=== PATIENT | female | born 1990 | race Caucasian/White ===

== ENCOUNTER 2016-07-23 06:10 | Inpatient (IN) | payer OTHER ==
[2016-07-23] MEDS ORDERED: CITRIC ACID/SODIUM CITRATE 30 ML UNIT-DOSE CUP PO ONE (06:15)
[2016-07-23] MEDS ORDERED: ELECTROLYTE-148 SOLN 500 ML IV ONE (06:15)
[2016-07-23] MEDS ORDERED: ELECTROLYTE-148 SOLN 1,000 ML IV SCH (06:45)
--- NOTE | 2016-07-23 07:35 | HP ---
Past Medical History - Primary Care Physician PCP:: Tarik Lincoln - Admission Chief Complaint: 39 weeks, previous c/s , gestational DM , for repeat c/s History of Present Illness: 25 yo f edc by sono 07/30/16 with 2 previous c/s requesting repeat c/s rba discussed ,fhr cat 1, cx clp,vx -3 mi History Source: Patient Limitations to Obtaining History: No Limitations - Past Medical History ...: 6 ...Para: 2 ...Term: 2 ...: 0 ...Spon : 0 ...Induced : 0 ...Multiple Gestation: 0 ...LMP: 10/24/15 ... Weeks Gestation by Dates: 39 ...EDC by Dates: 07/30/16 ...EDC by Sono: 07/30/16 Heme/Onc: Yes: Anemia Infectious Disease: Yes: STD's (txed in past for chlamydia) Endocrine: Yes: Diabetes Mellitus (diet controlled) - Past Surgical History Past Surgical History: Yes: Hx Myomectomy: No Hx Transabdominal Cerclage: No - Smoking History Smoking history: Never smoked - Alcohol/Substance Use Hx Alcohol Use: No - Social History History of Recent Travel: No Home Medications - Allergies Allergies/Adverse Reactions: Allergies Allergy/AdvReac Type Severity Reaction Status Date / Time No Known Allergies Allergy Verified 07/23/16 06:47 - Home Medications Home Medications: Ambulatory Orders Vitamins (Sjr) - 1 tab PO DAILY 06/03/16 Review of Systems - Review of Systems Constitutional: reports: No Symptoms Eyes: reports: No Symptoms HENT: reports: No Symptoms Neck: reports: No Symptoms Cardiovascular: reports: No Symptoms Respiratory: reports: No Symptoms Gastrointestinal: reports: No Symptoms Genitourinary: reports: No Symptoms Musculoskeletal: reports: No Symptoms Integumentary: reports: No Symptoms Neurological: reports: No Symptoms Endocrine: reports: No Symptoms Hematology/Lymphatic: reports: No Symptoms Psychiatric: reports: No Symptoms Physical Exam - Maternity Constitutional: Yes: Well Nourished, No Distress, Calm Eyes: Yes: WNL, Conjunctiva Clear, EOM Intact HENT: Yes: WNL, Atraumatic, Normocephalic Neck: Yes: WNL, Supple, Trachea Midline Cardiovascular: Yes: WNL, Regular Rate and Rhythm Breast(s): Yes: WNL - Abdominal Exam/OB Fundal Height: 40 Number of Fetuses: Single Presentation: Vertex Contractions: No Intensity: Unaware Monitor Mode: External Heart Rate Location: [facility] Category: I Accelerations: Uniform Decelerations: None - Vaginal Exam/OB Vaginal Bleediing: No Speculum Exam: No Dilatation (cm): closed Effacement (%): 0 Amniotic Membrane Status: Intact Presentation: Vertex/Position Station: -3 - Physical Exam Extremities: Yes: WNL Edema: Yes Edema: LLE: Trace, RLE: Trace Deep Tendon Reflex Grade: Normal +2 Psychiatric: Yes: WNL Hemorrhage Risk Assessment - Risk Factors Medium Risk Factors: Yes: Prior , uterine surgery,or multiple laparotomies Risk Score: 1 Risk Level: Medium Risk Problem List - Problems (1) with 39 completed weeks gestation Code(s): Z3A.39 - 39 WEEKS GESTATION OF (2) Previous section complicating Code(s): O34.219 - MATERNAL CARE FOR UNSP TYPE SCAR FROM PREVIOUS DEL Assessment/Plan repeat c/s, risks of infection, bleeding, injury to surrounding tissue, bowel, bladder, vesseles , anesthesia risk, post op complication discussed , declined BTL.
[2016-07-23 07:53] VITALS: BMI 31.1
[2016-07-23] MEDS ORDERED: oxyCODONE HCL 5 MG TABLET PO PRN (08:35)
[2016-07-23] MEDS ORDERED: IBUPROFEN 800 MG/8 ML IJ IVPB PRN (08:35)
[2016-07-23] MEDS ORDERED: BENZOCAINE 28 GM HEMORRHOIDAL OINTMENT PR PRN (08:35)
[2016-07-23] MEDS ORDERED: BENZOCAINE 20% 57 GM BOTTLE TP PRN (08:35)
[2016-07-23] MEDS ORDERED: METHYLERGONOVINE MALEATE 0.2 MG/1 ML AMP IM PRN (08:35)
[2016-07-23] MEDS ORDERED: diphenhydrAMINE HCL 25 MG CAPSULE (FP) PO PRN (08:35)
[2016-07-23] MEDS ORDERED: WITCH HAZEL 50% (TUCKS) 40 PAD/JAR PAD TP PRN (08:35)
[2016-07-23] MEDS ORDERED: OXYTOCIN 20 UNITS in 0.9% NS 1,000 ML IV SCH (08:45)
[2016-07-23] MEDS ORDERED: morphine SULFATE/Preservative Free 0.5 MG/ML (1cc Syringe) SPIN ONE (08:50)
[2016-07-23] MEDS ORDERED: ONDANSETRON 4 MG/2 ML VIAL IVPB PRN (08:50)
[2016-07-23] MEDS ORDERED: CEFAZOLIN (PRE-DOCKED) 50 ML IVPB ONE ×2 (15:19→23:08)
[2016-07-23] MEDS: CEFAZOLIN 1 GM/D5W 50 ML IVPB SCH (15:33)
[2016-07-24] MEDS: CEFAZOLIN 1 GM/D5W 50 ML IVPB SCH (00:03)
[2016-07-24] MEDS: IBUPROFEN 600 MG TABLET (FP) PO PRN (06:03)
[2016-07-24] MEDS: ACETAMINOPHEN 325 MG TABLET (FP) PO PRN ×3 (06:03→18:19)
[2016-07-24 07:07] LABS: BASOPHIL 0.2 % (0-2.0); EOSINOPHIL 0.1 % (0-4.5); MCH 21.5 pg (25.7-33.7); MCHC 31.1 g/dl (32.0-36.0); MEAN CELL VOLUME 69.2 fl (80-96); MEAN PLT VOLUME 8.7 fl (7.5-11.1); NEUTROPHILS 83.1 % (42.8-82.8); PLATELET COUNT 162 K/MM3 (134-434); RDW 18.1 % (11.6-15.6)
--- NOTE | 2016-07-24 08:05 | OP ---
DATE OF OPERATION: 07/23/2016 PREOPERATIVE DIAGNOSES: 39 weeks, gestational diabetes, 2 previous sections, request of repeat section. POSTOPERATIVE DIAGNOSES: 39 weeks, gestational diabetes, 2 previous sections, request of repeat section. PROCEDURE: Repeat low segment transverse section. SURGEON: Tarik Lincoln MD MASTICATOR: NICO Patton ANESTHESIA: Spinal, Dr. Jules. ESTIMATED BLOOD LOSS: 500 mL. DESCRIPTION OF PROCEDURE: The patient was taken to the operating room under adequate epidural anesthesia. Abdomen and perineum was prepped and draped. Pfannenstiel abdominal skin incision was made over the previous incision. Abdominal wall was cut layer by layer until the peritoneum was exposed and incised. Upon entering the abdominal cavity, lower uterine segment was identified, and uterovesical fold of peritoneum established. Bladder was pushed down. The lower uterine segment was very thin and had a window. Then amniotic sac was entered. Clear fluid. Head delivered from right occiput transverse position. Nasopharynx was suctioned, and live baby delivered without any difficulty. Placenta was delivered manually. Uterine cavity was cleaned of all remaining tissue. Uterine incision was closed in 2 layers, the 1st layer with 0 Biosyn continuous suture, the 2nd layer with 0 Biosyn imbricating the 1st layer. Bladder flap was closed with 0 Biosyn continuous suture. Both tubes and ovaries were checked and were normal. No active bleeding was seen. All of the lap pad, sponge, and instrument counts were correct. Then peritoneum was closed with 0 Biosyn continuous suture. Muscles were brought together with interrupted sutures of 0 Biosyn. Fascia was closed with 0 Biosyn continuous suture. Subcutaneous fat interrupted suture of 0 Biosyn and the skin was closed with charlotte. The patient tolerated the procedure well and left the OR in good condition. Maryam [id number]
[2016-07-24] MEDS ORDERED: BISACODYL 10 MG SUPP.RECT RC PRN (08:35)
[2016-07-24] MEDS: ENOXAPARIN NA (PORCINE) 40 MG/0.4 ML DISP.SYRIN SQ SCH (09:03)
[2016-07-24] MEDS: PRENATAL VITAMINS W/ FOLIC ACID TABLET (FP) PO SCH (09:03)
--- NOTE | 2016-07-24 09:11 | PN ---
Post Progress Note - Subjective Subjective: 25 yo Para 3, status post repeat , seen and evaluated. Doing well. Type of Delivery: Repeat C/S Vital Signs: Vital Signs Temperature 97.8 F 07/24/16 08:28 Pulse Rate 62 07/24/16 08:28 Respiratory Rate 20 07/24/16 08:28 Blood Pressure 110/57 07/24/16 08:28 O2 Sat by Pulse Oximetry (%) 99 07/23/16 10:00 Breast Exam: Yes: Soft Uterus: Yes: Fundus Firm Incision: Yes: Dressing dry and intact Abdomen/GI: Yes: Abdomen soft, Tolerating PO Lochia: Yes: Rubra Lochia, amount: Small Extremities: Yes: Calves non-tender Activity: Ambulating - Labs Labs: CBC WBC 10.0 K/mm3 (4.0-10.0) 07/24/16 06:00 RBC 4.27 M/mm3 (3.60-5.2) 07/24/16 06:00 Hgb 9.2 GM/dL (10.7-15.3) L 07/24/16 06:00 Hct 29.6 % (32.4-45.2) L 07/24/16 06:00 MCV 69.2 fl (80-96) L 07/24/16 06:00 MCHC 31.1 g/dl (32.0-36.0) L 07/24/16 06:00 RDW 18.1 % (11.6-15.6) H 07/24/16 06:00 Plt Count 162 K/MM3 (134-434) 07/24/16 06:00 MPV 8.7 fl (7.5-11.1) 07/24/16 06:00 Neutrophils % 83.1 % (42.8-82.8) H 07/24/16 06:00 Lymphocytes % 12.2 % (8-40) D 07/24/16 06:00 Monocytes % 4.4 % (3.8-10.2) 07/24/16 06:00 Eosinophils % 0.1 % (0-4.5) D 07/24/16 06:00 Basophils % 0.2 % (0-2.0) 07/24/16 06:00 Problem List - Problems (1) Status post repeat low transverse section Code(s): Z98.891 - HISTORY OF UTERINE SCAR FROM PREVIOUS SURGERY Assessment/Plan Status post repeat Stable Continue routine post op care
--- NOTE | 2016-07-24 10:05 | PN ---
Progress Note, Physician Chief Complaint: Pt ambulating, not yet voided, no SOLORZANO, pain controlled. No anesthesia complaints. - Current Medication List Current Medications: Active Medications Acetaminophen (Tylenol -) 650 mg PO Q4H PRN PRN Reason: FEVER OR PAIN Last Admin: 07/24/16 06:03 Dose: 650 mg Benzocaine (Americaine Ointment -) 1 applic NH PRN PRN PRN Reason: PAIN Benzocaine (Americaine 20% Huntley -) 1 spray TP PRN PRN PRN Reason: PAIN Bisacodyl (Dulcolax Suppository -) 10 mg RC PRN PRN PRN Reason: CONSTIPATION Diphenhydramine HCl (Benadryl -) 25 mg PO Q8H PRN PRN Reason: FOR ITCHING Diphenhydramine HCl (Benadryl Injection -) 25 mg IVPUSH Q4H PRN PRN Reason: Pruritis Enoxaparin Sodium (Lovenox -) 40 mg SQ DAILY [facility] Last Admin: 07/24/16 09:03 Dose: 40 mg Oxytocin/Sodium Chloride (Normal Saline+20 Units Oxytocin -) 1,000 mls @ 125 mls/hr IV ASDIR [facility] Last Admin: 07/23/16 14:56 Dose: 125 mls/hr Ibuprofen (Motrin -) 600 mg PO Q4H PRN PRN Reason: PAIN Last Admin: 07/24/16 06:03 Dose: 600 mg Methylergonovine Maleate (Methergine Injection -) 0.2 mg IM Q4H PRN PRN Reason: EXCESSIVE BLEEDING Last Admin: 07/23/16 20:32 Dose: 0.2 mg Oxycodone HCl (Roxicodone -) 5 mg PO Q4H PRN PRN Reason: PAIN LEVEL 1-5 Oxycodone HCl (Roxicodone -) 10 mg PO Q4H PRN PRN Reason: PAIN LEVEL 6-10 Multivit/Folic Acid/Iron ( Vitamins (Sjr) -) 1 tab PO DAILY [facility] Last Admin: 07/24/16 09:03 Dose: Not Given Senna/Docusate Sodium (Pericolace -) 1 tablet PO HS PRN PRN Reason: CONSTIPATION Simethicone (Mylicon -) 80 mg PO Q4H PRN PRN Reason: GAS Witch Cynthia/Glycerin (Tucks Pads -) 1 pad TP PRN PRN PRN Reason: PAIN - Objective Vital Signs: Vital Signs Temperature 97.8 F 07/24/16 08:28 Pulse Rate 62 07/24/16 08:28 Respiratory Rate 20 07/24/16 08:28 Blood Pressure 110/57 07/24/16 08:28 O2 Sat by Pulse Oximetry (%) 99 07/23/16 10:00 Constitutional: Yes: Well Nourished, No Distress, Calm Musculoskeletal: Yes: WNL Neurological: Yes: WNL, Alert, Oriented ...Motor Strength: WNL Labs: CBC, BMP 07/24/16 06:00 Assessment/Plan POD#1 s/p repeat under spinal with duramorph. D/C from anesthesia care.
[2016-07-24 12:13] LABS: ANISOCYTOSIS 2+; HYPOCHROMIA 1+; MICROCYTOSIS 1+
[2016-07-24] MEDS: SIMETHICONE 80 MG TAB.CHEW (FP) PO PRN ×2 (14:45→18:19)
[2016-07-24] MEDS: oxyCODONE HCL 5 MG TABLET PO PRN ×2 (14:46→18:21)
[2016-07-25] MEDS: SIMETHICONE 80 MG TAB.CHEW (FP) PO PRN ×3 (03:07→18:34)
[2016-07-25] MEDS: ACETAMINOPHEN 325 MG TABLET (FP) PO PRN ×3 (03:08→18:34)
[2016-07-25] MEDS: oxyCODONE HCL 5 MG TABLET PO PRN ×3 (03:08→18:35)
[2016-07-25] MEDS: ENOXAPARIN NA (PORCINE) 40 MG/0.4 ML DISP.SYRIN SQ SCH (09:57)
[2016-07-25] MEDS: PRENATAL VITAMINS W/ FOLIC ACID TABLET (FP) PO SCH (09:57)
--- NOTE | 2016-07-25 13:39 | PN ---
Post Progress Note - Subjective Subjective: 25 yo Para 3 status post repeat , seen and evaluated. She's out of bed to chair. She's bottle feeding. Post Day: 2 Type of Delivery: Repeat C/S Vital Signs: Vital Signs Temperature 98.4 F 07/24/16 20:58 Pulse Rate 61 07/24/16 20:58 Respiratory Rate 18 07/24/16 20:58 Blood Pressure 111/52 07/24/16 20:58 O2 Sat by Pulse Oximetry (%) 99 07/23/16 10:00 Breast Exam: Yes: Soft Uterus: Yes: Fundus Firm Incision: Yes: Dressing dry and intact Abdomen/GI: Yes: Abdomen soft, Tolerating PO Lochia: Yes: Rubra Lochia, amount: Small Extremities: Yes: Calves non-tender Perineum: Yes: Intact Activity: Ambulating - Labs Labs: CBC WBC 10.0 K/mm3 (4.0-10.0) 07/24/16 06:00 RBC 4.27 M/mm3 (3.60-5.2) 07/24/16 06:00 Hgb 9.2 GM/dL (10.7-15.3) L 07/24/16 06:00 Hct 29.6 % (32.4-45.2) L 07/24/16 06:00 MCV 69.2 fl (80-96) L 07/24/16 06:00 MCHC 31.1 g/dl (32.0-36.0) L 07/24/16 06:00 RDW 18.1 % (11.6-15.6) H 07/24/16 06:00 Plt Count 162 K/MM3 (134-434) 07/24/16 06:00 MPV 8.7 fl (7.5-11.1) 07/24/16 06:00 Neutrophils % 83.1 % (42.8-82.8) H 07/24/16 06:00 Lymphocytes % 12.2 % (8-40) D 07/24/16 06:00 Monocytes % 4.4 % (3.8-10.2) 07/24/16 06:00 Eosinophils % 0.1 % (0-4.5) D 07/24/16 06:00 Basophils % 0.2 % (0-2.0) 07/24/16 06:00 Hypochromic-Microcytic 1+ 07/24/16 06:00 Anisocytosis 2+ 07/24/16 06:00 Microcytosis 1+ 07/24/16 06:00 Macrocytosis 1+ 07/24/16 06:00 Problem List - Problems (1) Status post repeat low transverse section Code(s): Z98.891 - HISTORY OF UTERINE SCAR FROM PREVIOUS SURGERY Assessment/Plan Status post repeat Stable Continue routine post op care D/C home in am
--- NOTE | 2016-07-25 13:41 | DS ---
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 Vital Signs: Vital Signs Temperature 98.4 F 07/24/16 20:58 Pulse Rate 61 07/24/16 20:58 Respiratory Rate 18 07/24/16 20:58 Blood Pressure 111/52 07/24/16 20:58 O2 Sat by Pulse Oximetry (%) 99 07/23/16 10:00 Constitutional: Yes: Well Nourished Eyes: Yes: Conjunctiva Clear HENT: Yes: Atraumatic Neck: Yes: Supple, Trachea Midline Cardiovascular: Yes: Regular Rate and Rhythm Respiratory: Yes: Regular, CTA Bilaterally Gastrointestinal: Yes: Normal Bowel Sounds Pelvis: Yes: WNL External Genitalia: Yes: Normal Vaginal Exam: Yes: Normal Cervix: Yes: Normal Uterus: Yes: Normal Breast(s): Yes: WNL Musculoskeletal: Yes: WNL Extremities: Yes: WNL Edema: No Wound/Incision: Yes: Clean/Dry, Well Approximated Neurological: Yes: Alert, Oriented ...Motor Strength: WNL Psychiatric: Yes: Alert, Oriented Labs: CBC, BMP 07/24/16 06:00 Delivery - Delivery Type of Anesthesia: Spinal Episiotomy/Laceration: None EBL (cc): 800 Delivery, Single - Stages of Labor Date of Delivery: 07/23/16 Time of Delivery: 08:06 Time Placenta Delivered: 08:07 - Condition of Infant 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 Present: Yes Name: Jessica Clarke Infant Gender: Female Weight: 7 lb 3 oz Position: Right, OT Total Hours ROM (Hrs/Mins): 0/2 - 1 Minute Total Score: 9 5 Minutes Total Score: 9 - Center Feeding Plan Initial Plan: Elected not to breastfeed exclusively throughout hospitalization Discharge Summary Reason For Visit: ADMIT-C/SECTION Current Active Problems with 39 completed weeks gestation (Acute) Previous section complicating (Acute) Status post repeat low transverse section (Acute) Procedures: Principal: Repeat Low Transverse Hospital Course: Routine Post op care Condition: Good - Instructions Diet, Activity, Other Instructions: Regular diet No driving, no lifting x 4 weeks F/U in clinic in one week - Home Medications Comprehensive Discharge Medication List: Ambulatory Orders Vitamins (Sjr) - 1 tab PO DAILY 06/03/16 Ferrous Sulfate 325 mg PO DAILY 07/23/16
[2016-07-25] MEDS ORDERED: SENNOSIDES/DOCUSATE COMBO (SENNA PLUS) TABLET (UD) PO PRN (22:00)
[2016-07-26 07:50] LABS: BASOPHIL 0.2 % (0-2.0); MCH 21.7 pg (25.7-33.7); MCHC 31.3 g/dl (32.0-36.0); MEAN CELL VOLUME 69.2 fl (80-96); MEAN PLT VOLUME 8.4 fl (7.5-11.1); NEUTROPHILS 71.9 % (42.8-82.8); PLATELET COUNT 163 K/MM3 (134-434); RDW 19.3 % (11.6-15.6); WHITE BLOOD COUNT 9.2 K/mm3 (4.0-10.0)
[2016-07-26] MEDS: IBUPROFEN 600 MG TABLET (FP) PO PRN (07:59)
[2016-07-26] MEDS: ACETAMINOPHEN 325 MG TABLET (FP) PO PRN (08:00)
[2016-07-26 09:57] VITALS: BP 114/60; PULSE 67; TEMP 98.2
[2016-07-26] MEDS: PRENATAL VITAMINS W/ FOLIC ACID TABLET (FP) PO SCH (10:00)
[2016-07-26] MEDS: ENOXAPARIN NA (PORCINE) 40 MG/0.4 ML DISP.SYRIN SQ SCH (10:45)
--- NOTE | 2016-07-28 14:02 | PATH ---
Surgical Pathology Report Patient Name: CAR SINCLAIR Med. Rec. #: [id number] /Age/Gender: 1990 (Age: 25) / F Account: [id number] Location: 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 Specimen(s) Received PLACENTA Clinical History , 39 weeks; gestational diabetes-diet controlled; c/s x2 Repeat c/section Final Diagnosis PLACENTA, DELIVERY: FOCALLY DISRUPTED THIRD TRIMESTER PLACENTA WITH MODERATE INCREASE IN PREVILLOUS, PERIVILLOUS, AND PRECHORIONIC FIBRIN DEPOSITION, FOCAL CALCIFICATIONS, THREE VESSEL UMBILICAL CORD, AND PLACENTAL MEMBRANES WITH AMNION HYPERPLASIA. Electronically Signed Malachi Adamson M.D. Gross Description The specimen is received fresh, labeled "placenta" and is a 642 gram, 17.5 x 16.5 x 3.2 cm placenta with attached membranes and umbilical cord. The attached membranes are pinto, translucent with focal opacities and insert marginally. The umbilical cord measures 32 cm in length and averages 1.1 cm in diameter. The cord inserts eccentrically, 4 cm to the nearest margin. No true knots or strictures are identified. Cut surface of the umbilical cord reveals 3 vessels. The surface is hernandez-blue with fibrin deposition and appropriate caliber vessels. The maternal surface is red-brown with focal defects. Sectioning reveals red-brown, spongy parenchyma. No focal lesions are identified. Leasing Consultant sections are submitted in three cassettes as follows: 1- membrane rolls and umbilical cord; 2-3- full thickness sections of placenta. /07/27/201607/27/2016
== END 2016-07-26 14:00 | disposition home or self-care (01) | DRG 540 ==
LOC: JERBED 06:10 → JLDR 06:25 → J3W 10:23
PROVIDERS: ADMIT Obstetrics & Gynecology; ATTEND Obstetrics & Gynecology
PROC: 10D00Z1 Extraction of Products of Conception, Low, Open Approach (ICD-10-PCS; principal; 2016-07-23)
DX: O34.211 Maternal care for low transverse scar from previous cesarean delivery (principal); O24.420 Gestational diabetes mellitus in childbirth, diet controlled; Z3A.39 39 weeks gestation of pregnancy; Z37.0 Single live birth
CPT/HCPCS: 36415; 85025; 88307-TC

== ENCOUNTER 2017-06-24 10:56 | Emergency (ER) | payer OTHER ==
[2017-06-24 10:59] VITALS: TEMP 97.9
[2017-06-24 11:04] VITALS: BMI 26.5
--- NOTE | 2017-06-24 11:06 | PDOC ---
History of Present Illness - General History Source: Patient Exam Limitations: No Limitations - History of Present Illness Initial Comments: 06/24/17 12:34 The patient is a 26 year old female who is approximately 15 weeks with a significant PMH of gestational diabetes who presents to the emergency department s/p witnessed syncopal episode this morning. The patient reports standing at a store when she lost consciousness and fell before regaining consciousness on the ground a short time after. The patient notes she did not eat breakfast this morning. As per old records, the patient had a similar syncopal episode during a previous in 2016 where she did not eat breakfast that time. The patient denies chest pain, shortness of breath, headache, and dizziness. Denies fever, chills, nausea, vomit, diarrhea and constipation. Denies dysuria, frequency, urgency and hematuria. Allergies: NKA Past surgical history: C section x3. Social history: No reported cigarette, alcohol, or drug use. 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 <Sahil Buchanan - Last Filed: 06/24/17 12:42> <Tisha Mackey - Last Filed: 06/25/17 10:34> - General Chief Complaint: Syncope/Near Syncope Stated Complaint: SYNCOPE Time Seen by Provider: 06/24/17 10:57 Past History <Sahil Buchanan - Last Filed: 06/24/17 12:42> - Past Medical History Anemia: No Asthma: No Cancer: No Cardiac Disorders: No CVA: No COPD: No CHF: No Dementia: No Diabetes: Yes (Gestational diabetic - diet control) GI Disorders: No Disorders: No HTN: No Hypercholesterolemia: No Liver Disease: No Seizures: No Thyroid Disease: No - Reproductive History (#): 4 Para: 2 Cervical CA: No Dysfunctional Uterine Bleeding: No Ectopic : No Endometrial CA: No Polycystic Ovaries: No Therapeutic (s) & number: Yes Tubal Ligation: No Spontaneous : 0 - Immunization History Immunization Up to Date: No - Suicide/Smoking/Psychosocial Hx Smoking History: Never smoked Have you smoked in the past 12 months: No Information on smoking cessation initiated: No Hx Alcohol Use: No Drug/Substance Use Hx: No Substance Use Type: None Hx Substance Use Treatment: No <iTsha Mackey - Last Filed: 06/25/17 10:34> - Past Medical History Allergies/Adverse Reactions: Allergies Allergy/AdvReac Type Severity Reaction Status Date / Time No Known Allergies Allergy Verified 06/24/17 10:58 Home Medications: Ambulatory Orders Vitamins (Sjr) - 1 tab PO DAILY 06/03/16 Review of Systems - Review of Systems Able to Perform ROS?: Yes Comments:: 06/24/17 12:34 GENERAL/CONSTITUTIONAL: No fever or chills. HEAD, EYES, EARS, NOSE AND THROAT: No change in vision. No ear pain or discharge. No sore throat. CARDIOVASCULAR: No chest pain or shortness of breath. RESPIRATORY: No cough, wheezing, or hemoptysis. GASTROINTESTINAL: No nausea, vomiting, diarrhea or constipation. GENITOURINARY: No dysuria, frequency, or change in urination. MUSCULOSKELETAL: No joint or muscle swelling or pain. No neck or back pain. SKIN: No rash NEUROLOGIC: (+) Syncope. No headache, vertigo, loss of consciousness, or change in strength/sensation. ENDOCRINE: No increased thirst. No abnormal weight change. HEMATOLOGIC/LYMPHATIC: No anemia, easy bleeding, or history of blood clots. ALLERGIC/IMMUNOLOGIC: No hives or skin allergy. <Sahil Buchanan - Last Filed: 06/24/17 12:42> *Physical Exam - Vital Signs Last Vital Signs Temp Pulse Resp BP Pulse Ox 97.9 F 80 16 107/57 100 06/24/17 10:59 06/24/17 11:40 06/24/17 11:40 06/24/17 11:40 06/24/17 11:40 <Sahil Buchanan - Last Filed: 06/24/17 12:42> - Vital Signs Last Vital Signs Temp Pulse Resp BP Pulse Ox 97.9 F 60 16 96/46 100 06/24/17 10:59 06/24/17 10:59 06/24/17 10:59 06/24/17 10:59 06/24/17 10:59 - Physical Exam Comments: GENERAL: Awake, alert, and fully oriented, in no acute distress HEAD: No signs of trauma EYES: PERRLA, EOMI, sclera anicteric, conjunctiva clear ENT: Auricles normal inspection, hearing grossly normal, nares patent, oropharynx clear without exudates. Dry mucosa with mild pallor of the lips. NECK: Normal ROM, supple, no lymphadenopathy, JVD, or masses LUNGS: Breath sounds equal, clear to auscultation bilaterally. No wheezes, and no crackles HEART: Regular rate and rhythm, normal S1 and S2, no murmurs, rubs or gallops ABDOMEN: Soft, nontender, normoactive bowel sounds. No guarding, no rebound. No masses EXTREMITIES: Normal range of motion, no edema. No clubbing or cyanosis. No cords, erythema, or tenderness NEUROLOGICAL: Cranial nerves II through XII grossly intact. Normal speech. Motor and sensation intact. Gait not tested due to nature of complaint. SKIN: Warm, Dry, normal turgor, no rashes or lesions noted. <Tisha Mackey - Last Filed: 06/25/17 10:34> Heart Score/ECG Review - ECG Impressions Comment:: EKG read 11:06- sinus nancy 58 bpm, no acute ST/T changes <Tisha Mackey - Last Filed: 06/25/17 10:34> ED Treatment Course - LABORATORY CBC & Chemistry Diagram: 06/24/17 11:07 06/24/17 11:07 - ADDITIONAL ORDERS Additional order review: Laboratory Results 06/24/17 06/24/17 11:07 10:59 Sodium 140 Potassium 3.8 Chloride 107 Carbon Dioxide 24 Anion Gap 9 BUN 10 Creatinine 0.6 Creat Clearance w eGFR > 60 POC Glucometer 99.09707 Random Glucose 89 Calcium 7.6 L Total Bilirubin 0.2 AST 14 L ALT 12 Alkaline Phosphatase 71 Creatine Kinase 42 Troponin I < 0.02 Total Protein 6.2 L Albumin 2.8 L Beta HCG, Quant 86143.3 06/24/17 06/24/17 11:07 10:59 RBC 4.33 MCV 73.1 L MCHC 32.5 RDW 17.9 H MPV 7.7 Neutrophils % 78.2 Lymphocytes % 16.5 Monocytes % 4.5 Eosinophils % 0.7 Basophils % 0.1 POC Glucometer 99.22971 <Sahil Buchanan - Last Filed: 06/24/17 12:42> - LABORATORY CBC & Chemistry Diagram: 06/24/17 11:07 06/24/17 11:07 <Tisha Mackey - Last Filed: 06/25/17 10:34> Medical Decision Making - Medical Decision Making Pt reported improvement with IV fluids prior to ED arrival (requesting to be discharged early in ED evaluation), but was mildly hypotensive. Improved with IV boluses and PO food intake in ED. Labs wnl. Sono wnl. Stable for DC home. Counseled not to skip meals and fluids while . <Tisha Mackey - Last Filed: 06/25/17 10:34> *DC/Admit/Observation/Transfer - Attestations Scribe Attestion: 06/24/17 12:35 Documentation prepared by Sahil Buchanan, acting as medical customer service representative for Tisha Mackey MD. <Sahil Buchanan - Last Filed: 06/24/17 12:42> - Discharge Dispostion Admit: No <Tisha Mackey - Last Filed: 06/25/17 10:34> Diagnosis at time of Disposition: Syncope Qualifiers: Syncope type: unspecified Qualified Code(s): R55 - Syncope and collapse - Discharge Dispostion Disposition: HOME Condition at time of disposition: Improved - Referrals Referrals: Tarik Lincoln MD [Staff Physician] - - Patient Instructions Printed Discharge Instructions: DI for Syncope in Adults (Fainting) Print Language: BENGALI
[2017-06-24 11:28] LABS: BASO % 0.1 % (0-2.0); EOS % 0.7 % (0-4.5); HEMATOCRIT 31.6 % (32.4-45.2); HEMOGLOBIN 10.3 GM/dL (10.7-15.3); LYMPH % 16.5 % (8-40); MCH 23.8 pg (25.7-33.7); MCHC 32.5 g/dl (32.0-36.0); MEAN CELL VOLUME 73.1 fl (80-96); MEAN PLT VOLUME 7.7 fl (7.5-11.1); MONO % 4.5 % (3.8-10.2); NEUT % 78.2 % (42.8-82.8); PLATELET COUNT 207 K/MM3 (134-434); RBC 4.33 M/mm3 (3.60-5.2); RDW 17.9 % (11.6-15.6)
[2017-06-24] MEDS ORDERED: SODIUM CHLORIDE 1,000 ML IV STA (11:41)
[2017-06-24 11:53] LABS: ALBUMIN 2.8 g/dl (3.4-5.0); ANION GAP 9 (8-16); BILIRUBIN,TOTAL 0.2 mg/dL (0.2-1.0); BLOOD UREA NITROGEN 10 mg/dL (7-18); CALCIUM 7.6 mg/dL (8.5-10.1); CHLORIDE 107 mmol/L (98-107); CO2 24 mmol/L (21-32); CREATININE 0.6 mg/dL (0.55-1.02); GLUCOSE,RANDOM 89 mg/dL (74-106); POTASSIUM 3.8 mmol/L (3.5-5.1); SGOT/AST 14 U/L (15-37); SGPT/ALT 12 U/L (12-78); SODIUM 140 mmol/L (136-145); TOT PROT 6.2 g/dl (6.4-8.2)
[2017-06-24 12:07] LABS: ALK PHOS 71 U/L (45-117)
--- NOTE | 2017-06-24 12:27 | EKG ---
Test Reason : Blood Pressure : / mmHG Vent. Rate : 058 BPM Atrial Rate : 058 BPM P-R Int : 140 ms QRS Dur : 084 ms QT Int : 440 ms P-R-T Axes : 008 051 007 degrees QTc Int : 431 ms SINUS BRADYCARDIA CANNOT RULE OUT ANTERIOR INFARCT , AGE UNDETERMINED ABNORMAL ECG NO PREVIOUS ECGS AVAILABLE Confirmed by SAMANTHA BROWN MD ([id number]) on 06/24/2017 12:27:16 PM Referred By: Confirmed By:SAMANTHA BROWN MD
[2017-06-24 14:20] LABS: URINE APPEARANCE CLOUDY; URINE BILIRUBIN NEGATIVE (<2.0 mg/dL); URINE COLOR YELLOW; URINE GLUCOSE (UA) NEGATIVE (NEGATIVE); URINE KETONE TRACE (NEGATIVE); URINE NITRITE NEGATIVE (NEGATIVE); URINE UROBILINOGEN NEGATIVE mg/dL (0.2-1.0)
[2017-06-24 14:23] LABS: URINE LEUK ESTERASE 1+ (NEGATIVE); URINE PROTEIN 1+ (NEGATIVE)
[2017-06-24 14:29] LABS: EPI CELLS MANY /HPF (FEW); URINE BACTERIA RARE /hpf (NONE SEEN); URINE MUCUS RARE
[2017-06-24 16:21] VITALS: BP 110/70; PULSE 63
== END 2017-06-24 16:19 | disposition home or self-care (01) ==
LOC: JER 10:56
PROC: 3E0337Z Introduction of Electrolytic and Water Balance Substance into Peripheral Vein, Percutaneous Approach (ICD-10-PCS; principal; 2017-06-24)
DX: O99.89 Other specified diseases and conditions complicating pregnancy, childbirth and the puerperium (principal); R55 Syncope and collapse; Z86.32 Personal history of gestational diabetes; Z3A.15 15 weeks gestation of pregnancy
CPT/HCPCS: 36415; 76801-TC; 80053; 81003; 81015; 82550; 82962; 84484; 84702; 85025; 93005; 93010; 96360; 99285-25; J7030

== ENCOUNTER 2017-11-15 18:45 | Inpatient (IN) | payer OTHER ==
[2017-11-15 20:09] VITALS: BMI 28.1
[2017-11-15] MEDS ORDERED: ELECTROLYTE-148 SOLN 500 ML IV ONE (20:18)
[2017-11-15] MEDS ORDERED: ELECTROLYTE-148 SOLN 1,000 ML IV SCH (20:30)
[2017-11-15] MEDS ORDERED: CITRIC ACID/SODIUM CITRATE 30 ML UNIT-DOSE CUP PO ONE (20:30)
--- NOTE | 2017-11-15 20:38 | HP ---
Past Medical History - Primary Care Physician PCP:: Junie Thomas - Admission Chief Complaint: 26 yrs 39 3 weeks by dates , 38.1/7 weeks by sono previous c/sx3 admitted in labor .Onset Lp since 11.00 AM. pt requests for voluntory sterlization History of Present Illness: pnc at 2, [facility] 22 lbs wt gain pnc at 2, [facility] panel 05/17/17 O Pos, Rpr nr, Hbsag neg, Rubella immune, Sickle neg, cf screen neg, Hiv neg , gc/ct neg 1 hr gtt 115, Quantiferon neg , Repeat Rpr nr 11/04/17 labs h/h 9.8/31.1, plt 191, GBS pois Gc/Ct neg , Hiv neg Ultrasound done by [facility] for growth NT screen neg History Source: Patient, Medical Record Limitations to Obtaining History: No Limitations - Past Medical History FITNESS MANAGEMENT DIRECTOR: No: Migraine, Seizure Cardiovascular: No: HTN, Murmur Pulmonary: No: Asthma Gastrointestinal: Yes: Constipation Hepatobiliary: No: Hepatitis B Renal/: No: UTI ...: 7 ...Para: 3 ...Term: 3 ...: 0 ...Spon : 1 ...Induced : 2 ...Multiple Gestation: 0 ...LMP: 02/12/17 ... Weeks Gestation by Dates: 39.3 ...EDC by Dates: 11/19/17 ...EDC by Sono: 11/28/17 (38.1/7 weeks,on 06/17/17 sono 16.4 weeks -- ) Additional OB History: G1 08/19/08 primary c/s -40 wks 7'4" sj. G2 10/15/09 - Repeat C/section 40 wks [facility]. G3 2011 sp ab. G4 2014 sp ab. G5 sp ab. G6 07/23/16 Repeat c/section 40 weeks 7'3' sj Heme/Onc: Yes: Anemia (rx po iron & pnv) Infectious Disease: Yes: STD's (txed in past for chlamydia) Psych: Yes: Other (declines h/o mental disorder) Endocrine: Yes: Other (pst h/o GDM diet controlled in 07/2016 ) - Past Surgical History Past Surgical History: Yes: (08/2008, 09/2009, 07/2016) Hx Myomectomy: No Hx Transabdominal Cerclage: No - Smoking History Smoking history: Never smoked Have you smoked in the past 12 months: No - Alcohol/Substance Use Hx Alcohol Use: No History of Substance Use: reports: None - Social History History of Recent Travel: No Home Medications - Allergies Allergies/Adverse Reactions: Allergies Allergy/AdvReac Type Severity Reaction Status Date / Time No Known Allergies Allergy Verified 11/15/17 19:28 - Home Medications Home Medications: Ambulatory Orders Vitamins (Sjr) - 1 tab PO DAILY 06/03/16 Physical Exam - Maternity Vital Signs: Vital Signs Temperature 98.9 F 11/15/17 19:20 Pulse Rate 84 11/15/17 19:20 Respiratory Rate 20 11/15/17 19:20 Blood Pressure 113/68 11/15/17 19:20 O2 Sat by Pulse Oximetry (%) Selected Entries 11/15/17 19:20 Weight 154 lb Constitutional: Yes: Well Nourished, Moderate Distress Eyes: Yes: WNL HENT: Yes: WNL, Normocephalic Neck: Yes: WNL Cardiovascular: Yes: WNL, Regular Rate and Rhythm Lungs: Clear to auscultation Breast(s): Yes: WNL. No: Mass - Abdominal Exam/OB Fundal Height: 38 Number of Fetuses: Single Presentation: Vertex Contractions: Yes Regularity: Regular (2-3) Intensity: Moderate Monitor Mode: External Heart Rate (range): 130-140 Heart Rate Location: [facility] Category: I Accelerations: Uniform Decelerations: None - Vaginal Exam/OB Vaginal Bleediing: No Speculum Exam: No Dilatation (cm): FT Effacement (%): 70 Amniotic Membrane Status: Intact Presentation: Vertex/Position Station: -3 - Physical Exam Musculoskeletal: Yes: WNL Extremities: Yes: WNL. No: Calf Tenderness Edema: Yes Edema: LLE: 1+, RLE: 1+ Integumentary: Yes: Incision (pfannensteil scar) Deep Tendon Reflex Grade: Normal +2 ...Motor Strength: WNL Psychiatric: Yes: WNL, Alert, Oriented - Labs Lab Results: Laboratory Tests 11/15/17 11/15/17 11/15/17 20:00 20:00 20:50 WBC 11.7 H Hgb 10.2 L Hct 32.1 L Plt Count 210 Neutrophils % 85.9 H Lymphocytes % 9.2 D Hypochromia 2+ Platelet Estimate Adequate Sodium 140 Potassium 3.7 Chloride 108 H Carbon Dioxide 20 L BUN 9 Creatinine 0.4 L Random Glucose 93 Blood Type O POSITIVE Antibody Screen Negative Hemorrhage Risk Assessment - Risk Factors Medium Risk Factors: Yes: Prior , uterine surgery,or multiple laparotomies Risk Score: 1 Risk Level: Medium Risk Problem List - Problems (1) with 38 completed weeks gestation Code(s): Z3A.38 - 38 WEEKS GESTATION OF (2) Previous section Code(s): Z98.891 - HISTORY OF UTERINE SCAR FROM PREVIOUS SURGERY (3) Multiparity Code(s): Z64.1 - PROBLEMS RELATED TO MULTIPARITY (4) Positive GBS test Code(s): B95.1 - STREPTOCOCCUS, GROUP B, [facility] (5) Anemia Code(s): D64.9 - ANEMIA, UNSPECIFIED Qualifiers: Anemia type: iron deficiency Assessment/Plan 26 Yrs , 38.1 weeks by sono, 39 .3 weeks by dates, previous c/section x3 in labor , requests for repeat c/section & voluntory sterlizatio gbs pos Plan Repeat C/Section + BTL
[2017-11-15 20:41] LABS: BASO % 0.2 % (0-2.0); EOS % 0.2 % (0-4.5); HEMATOCRIT 32.1 % (32.4-45.2); HEMOGLOBIN 10.2 GM/dL (10.7-15.3); LYMPH % 9.2 % (8-40); MCH 21.8 pg (25.7-33.7); MCHC 31.8 g/dl (32.0-36.0); MEAN CELL VOLUME 68.5 fl (80-96); MEAN PLT VOLUME 7.6 fl (7.5-11.1); MONO % 4.5 % (3.8-10.2); NEUT % 85.9 % (42.8-82.8); PLATELET COUNT 210 K/MM3 (134-434); RBC 4.69 M/mm3 (3.60-5.2); RDW 16.8 % (11.6-15.6); WHITE BLOOD COUNT 11.7 K/mm3 (4.0-10.0)
[2017-11-15 21:05] LABS: ANION GAP 12 MMOL/L (8-16); BLOOD UREA NITROGEN 9 mg/dL (7-18); CALCIUM 7.8 mg/dL (8.5-10.1); CHLORIDE 108 mmol/L (98-107); CO2 20 mmol/L (21-32); CREATININE 0.4 mg/dL (0.55-1.02); GLUCOSE,RANDOM 93 mg/dL (74-106); POTASSIUM 3.7 mmol/L (3.5-5.1); SODIUM 140 mmol/L (136-145)
[2017-11-15 21:07] LABS: INR 1.02 (0.83-1.09); PROTHROMBIN TIME (PATIENT) 11.5 SEC (9.7-13.0)
[2017-11-15 21:09] LABS: ACTIVATED PTT 25.2 SECONDS (25.2-36.5)
[2017-11-15] MEDS ORDERED: ceFAZolin SODIUM 1 GM VIAL ONE (21:25)
[2017-11-15] MEDS ORDERED: morphine SULFATE/Preservative Free 0.5 MG/ML (1cc Syringe) ONE (21:25)
[2017-11-15] MEDS ORDERED: morphine SULFATE/Preservative Free 0.5 MG/ML (1cc Syringe) SPIN ONE (21:36)
[2017-11-15] MEDS ORDERED: ONDANSETRON 4 MG/2 ML VIAL IVPUSH PRN (21:50)
[2017-11-15] MEDS ORDERED: OXYTOCIN 10 UNITS/ML VIAL ONE ×2 (21:55→22:46)
[2017-11-15 22:24] LABS: ARTERIAL BLOOD GAS pH 7.27 (7.35-7.45); VENOUS PC02 40.4 mmHg (38-52); VENOUS PH 7.36 (7.32-7.42); VENOUS PO2 26.7 mmHg (28-48)
[2017-11-15 22:25] LABS: ARTERIAL BLOOD GAS BASE EXCESS -3.3 meq/l (-2-2); ARTERIAL BLOOD GAS PCO2 53.8 mmHg (35-45); ARTERIAL BLOOD GAS PO2 19.6 mmHg (80-100)
[2017-11-15 22:26] LABS: ARTERIAL BLD GAS O2 SATURATION 34.3 % (90-98.9)
[2017-11-15 22:28] LABS: ANISOCYTOSIS 1+; PLATELET ESTIMATE ADEQUATE
[2017-11-15] MEDS ORDERED: IBUPROFEN 800 MG/8 ML IJ IVPB PRN (23:14)
[2017-11-15] MEDS ORDERED: METHYLERGONOVINE MALEATE 0.2 MG/1 ML AMP IM PRN (23:14)
[2017-11-15] MEDS ORDERED: SENNOSIDES/DOCUSATE COMBO (SENNA PLUS) TABLET (UD) PO PRN (23:14)
--- NOTE | 2017-11-15 23:29 | PN ---
Delivery - Delivery Section: Repeat, Low Flap Transverse (Bilateral total salpingectomy ( BTL )) EBL (cc): 600 (reid output 100 ml serina color ) Delivery, Single - Stages of Labor Date 1st Stage Initiatied: 11/15/17 Time 1st Stage Initiated: 18:00 Date of Delivery: 11/15/17 Time of Delivery: 21:55 Date Placenta Delivered: 11/15/17 Time Placenta Delivered: 21:56 Placenta: Yes: Manual Removal, Uterine Exploration - Condition of Delivery Representative/Video System Repairer Present: Yes Name: Jessica Clarke Infant Gender: Female Weight: 7 lb 15 oz Position: Right, OT Total Hours ROM (Hrs/Mins): 3 min - 1 Minute Total Score: 9 5 Minutes Total Score: 9 - Pablo Feeding Plan Initial Plan: Elected not to breastfeed exclusively throughout hospitalization Remarks - Remarks Remarks: 26 yrs , 38.1 weeks by sono & 39.3 weeks by dates admitted in labor. GBS pos Indication 38.1 weeks , previous c/sction x3, requests voluntory sterlization Intraop course uneventful. 1 gm Iv ancef prior to incision was given
[2017-11-15] MEDS ORDERED: OXYTOCIN 20 UNITS in 0.9% NS 20 UNIT/1,000 ML INFUS.BAG IV SCH (23:30)
--- NOTE | 2017-11-15 23:35 | OP ---
Operative Note - Note: Operative Date: 11/15/17 Pre-Operative Diagnosis: 38.1 weeks , previous c/s x3, requests Voluntory sterlization Operation: Repeat LFTC/section, BTL ( bilateral total salpingectomy ) Findings: Baby Girl , at 9.55PM, , 9/9 , ROT position, Wt 7'15", Ht 19" Dr Clarke Epoxy Specialist present in the room both ovaries normal both tubes excised with LigaSure for entire length . hemostasis noted Surgeon: Junie Thomas Roll Tester: Halie Beck Anesthesiologist/BACK CLOSER: Miquel Lynch Anesthesia: Spinal Specimens Removed: cord blood gas. cord blood. placenta Estimated Blood Loss (mls): 600 Drains, Volume Out (mls): 100 (serina color reid output ) Fluid Volume Replaced (mls): 1,000 (1 gm iv ancef prior to incision ) Operative Report Dictated: Yes
[2017-11-16] MEDS ORDERED: DEXTROSE 5%-WATER - 50 ML IVPB ONE ×3 (05:40→20:55)
[2017-11-16] MEDS ORDERED: ceFAZolin SODIUM 1 GM VIAL ONE ×3 (05:40→20:55)
[2017-11-16] MEDS: CEFAZOLIN 1 GM in DEXTROSE 5%-WATER - 50 ML IVPB SCH ×3 (05:44→20:58)
[2017-11-16 07:21] LABS: BASO % 0.3 % (0-2.0); EOS % 0.4 % (0-4.5); HEMATOCRIT 30.1 % (32.4-45.2); HEMOGLOBIN 9.4 GM/dL (10.7-15.3); MCH 21.7 pg (25.7-33.7); MCHC 31.3 g/dl (32.0-36.0); MEAN CELL VOLUME 69.5 fl (80-96); MEAN PLT VOLUME 7.7 fl (7.5-11.1); MONO % 5.6 % (3.8-10.2); NEUT % 81.7 % (42.8-82.8); PLATELET COUNT 187 K/MM3 (134-434); RBC 4.33 M/mm3 (3.60-5.2); RDW 16.9 % (11.6-15.6); WHITE BLOOD COUNT 10.8 K/mm3 (4.0-10.0)
[2017-11-16] MEDS: FERROUS SO4 325 MG TABLET (FP) PO SCH ×2 (08:39→17:06)
--- NOTE | 2017-11-16 08:49 | OP ---
DATE OF OPERATION: 11/15/2017 PREOPERATIVE DIAGNOSIS: A 38.1 week gestation, previous section x3, in labor, and requests voluntary sterilization. OPERATION: Repeat low flap transverse section, tubal ligation, bilateral total salpingectomy. SURGEON: Junie Thomas MD RUSSIAN HISTORY PROFESSOR SURGEON: Halie Beck MD ANESTHESIOLOGIST: Miquel Lynch MD ANESTHESIA: Spinal. FINDINGS: This is a 26-year-old, 7, para 3-0-3-3, at 38.1 weeks, complains of abdominal pain, uterine contractions, irregularly and between 2-4 minutes, and cervix is fingertip posterior, 70% effaced. Vertex was -3 station. After IV hydration, the patient continued to have regular contractions, so the patient was taken for repeat section and tubal ligation. PROCEDURE: Patient is taken to the operating room table and the abdomen was shaved, prepped. Mabry catheter was placed. Abdomen was painted and draped in the usual manner. The patient was given spinal anesthesia. Patient was placed in the supine position and the abdomen was painted and draped in the usual manner. Then the Pfannenstiel incision was made through the previous scar. The previous scar was excised. The skin and subcutaneous tissue and anterior rectus sheath were incised transversely. Bleeding points were clamped and cauterized. Rectus muscles were from the rectus sheath. Parietal peritoneum was opened vertically. The bladder peritoneum was identified and it was incised transversely. The lower uterine segment was very thin. It was incised transversely. Amniotic fluid was clear. Baby was delivered from the ROP position at 9:55 p.m. Baby girl, Apgars were 9 and 9. Cord was clamped and cut. Cord blood was collected. Baby weight was 7 pounds 15 ounces. Placenta was removed completely with membranes. Uterine incision was closed in 2 layers; first layer was a continuous locking with Biosyn 0 suture and the second layer was closed with a continuous intermittent locking with Biosyn 0 suture. The bladder peritoneum was included in the second layer. Hemostasis was checked. Both tubes, up to the fimbriated ends, were inspected. Both ovaries were normal. Then with LigaSure starting with the fimbriated end just below the tubal lumen in the mesosalpinx, with LigaSure it was twice cauterized & the cut, the tube was freed from the mesosalpinx until the cornua was reached. Both sides had the same procedure was done. First the left tube and then the right tube was excised with LigaSure by cauterizing twice and then cutting it. . Hemostasis was verified once again. The uterus was placed back in the peritoneal cavity. Irrigation was done. Closure of the abdomen was done. Hemostasis was once again checked before closure of the abdomen. Parietal peritoneum was closed with Vicryl suture. Hemostasis was checked underneath the rectus sheath. The muscles were approximated together with a Vicryl row suture with interrupted sutures. The anterior rectus sheath was closed with 0 Vicryl suture. Continuous sutures were taken. The skin was freed from underneath the scar. The subcutaneous suture was approximated with 0 Biosyn suture with interrupted sutures. The skin was approximated with charlotte. Pressure dressing was given. Blood clots were removed from the vagina. ESTIMATED BLOOD LOSS: 600 mL. INTRAOPERATIVE URINE OUTPUT: 100 mL. ANTIBIOTICS: IV Ancef 1 g prior to the incision was given. TOTAL SOLUTION: She received in the IV was 1000 mL. CONDITION: She tolerated the procedure well and was transferred to the recovery room in stable condition. Maryam [id number] MTDD
[2017-11-16] MEDS: PRENATAL VITAMINS W/ FOLIC ACID TABLET (FP) PO SCH (09:50)
[2017-11-16] MEDS ORDERED: oxyCODONE HCL 5 MG TABLET PO PRN ×2 (10:00)
--- NOTE | 2017-11-16 10:16 | PN ---
Post Progress Note - Subjective Subjective: c/o pain scale 4/10 Post Day: 1 Type of Delivery: Repeat C/S Vital Signs: Vital Signs Temperature 98.4 F 11/16/17 06:00 Pulse Rate 65 11/16/17 06:00 Respiratory Rate 20 11/16/17 09:00 Blood Pressure 99/53 11/16/17 06:00 O2 Sat by Pulse Oximetry (%) 100 11/15/17 23:50 Breast Exam: Yes: Soft, Other (BF ). No: Engorged Uterus: Yes: Fundus Firm, Fundus below umbilicus, Non-tender Incision: Yes: Dressing dry and intact. No: Oozing, Other Abdomen/GI: Yes: Abdomen soft (BS active ), Tender, Tolerating PO (clear fluids ). No: Abdominal Distention, Passing flatus Lochia: Yes: Rubra Lochia, amount: Moderate Extremities: Yes: Calves non-tender Perineum: Yes: Intact Activity: Other (not oob yet . foely in situ , scd in situ ) - Labs Labs: CBC WBC 10.8 K/mm3 (4.0-10.0) H 11/16/17 07:00 RBC 4.33 M/mm3 (3.60-5.2) 11/16/17 07:00 Hgb 9.4 GM/dL (10.7-15.3) L 11/16/17 07:00 Hct 30.1 % (32.4-45.2) L 11/16/17 07:00 MCV 69.5 fl (80-96) L 11/16/17 07:00 MCH 21.7 pg (25.7-33.7) L 11/16/17 07:00 MCHC 31.3 g/dl (32.0-36.0) L 11/16/17 07:00 RDW 16.9 % (11.6-15.6) H 11/16/17 07:00 Plt Count 187 K/MM3 (134-434) 11/16/17 07:00 MPV 7.7 fl (7.5-11.1) 11/16/17 07:00 Absolute Neuts (auto) 8.8 K/mm3 (1.5-8.0) H 11/16/17 07:00 Neutrophils % 81.7 % (42.8-82.8) 11/16/17 07:00 Lymphocytes % 12.0 % (8-40) D 11/16/17 07:00 Monocytes % 5.6 % (3.8-10.2) 11/16/17 07:00 Eosinophils % 0.4 % (0-4.5) D 11/16/17 07:00 Basophils % 0.3 % (0-2.0) 11/16/17 07:00 Nucleated RBC % 0 % (0-0) 11/16/17 07:00 Hypochromia 2+ 11/15/17 20:00 Platelet Estimate Adequate 11/15/17 20:00 Platelet Comment 11/15/17 20:00 Anisocytosis 1+ 11/15/17 20:00 Microcytosis 1+ 11/15/17 20:00 Other Findings, Remarks: i/o 750/700 ml serina color RS CTA Problem List - Problems (1) with 38 completed weeks gestation Code(s): Z3A.38 - 38 WEEKS GESTATION OF (2) Previous section Code(s): Z98.891 - HISTORY OF UTERINE SCAR FROM PREVIOUS SURGERY (3) Multiparity Code(s): Z64.1 - PROBLEMS RELATED TO MULTIPARITY (4) Positive GBS test Code(s): B95.1 - STREPTOCOCCUS, GROUP B, CAUSING DISEASES CLASSD ELSWHR (5) Anemia Code(s): D64.9 - ANEMIA, UNSPECIFIED Qualifiers: Anemia type: iron deficiency (6) delivery delivered Code(s): O82 - ENCOUNTER FOR DELIVERY WITHOUT INDICATION (7) Encounter for visit Code(s): Z39.2 - ENCOUNTER FOR ROUTINE FOLLOW-UP Assessment/Plan stable, anemia plan ct po care encourage ambulation, after reid is d/mahesh , deep breathing & Po fluids
--- NOTE | 2017-11-16 11:05 | PN ---
Progress Note, Physician Chief Complaint: s/p c section under spinal anesthesia History of Present Illness: post op day one - Current Medication List Current Medications: Active Medications Acetaminophen (Tylenol -) 650 mg PO Q4H PRN PRN Reason: PAIN 1-3 Bisacodyl (Dulcolax Suppository -) 10 mg RC DAILY PRN PRN Reason: CONSTIPATION Diphenhydramine HCl (Benadryl Injection -) 25 mg IVPUSH Q4H PRN PRN Reason: Pruritis Enoxaparin Sodium (Lovenox -) 40 mg SQ DAILY ON LICENSE OF [facility] Ferrous Sulfate (Feosol -) 325 mg PO BIDWM ON LICENSE OF [facility] Last Admin: 11/16/17 08:39 Dose: Not Given Cefazolin Sodium 1 gm/ (Dextrose) 50 mls @ 100 mls/hr IVPB Q8H ON LICENSE OF [facility] Stop: 11/17/17 05:29 Last Admin: 11/16/17 05:44 Dose: 100 mls/hr Oxytocin/Sodium Chloride (Normal Saline+20 Units Oxytocin -) 20 unit in 1,000 mls @ 125 mls/hr IV ASDIR ON LICENSE OF [facility] Ibuprofen (Motrin -) 600 mg PO Q4H PRN PRN Reason: PAIN LEVEL 4-6 Ibuprofen (Caldolor Injection -) 800 mg IVPB Q8H PRN PRN Reason: PAIN LEVEL 1-5 Stop: 11/16/17 23:13 Last Admin: 11/16/17 02:20 Dose: 800 mg Methylergonovine Maleate (Methergine Injection -) 0.2 mg IM Q4H PRN PRN Reason: Excessive Bleeding (L&D) Ondansetron HCl (Zofran Injection) 4 mg IVPUSH Q4H PRN PRN Reason: NAUSEA Oxycodone HCl (Roxicodone -) 5 mg PO Q4H PRN PRN Reason: PAIN LEVEL 4 - 6 Oxycodone HCl (Roxicodone -) 10 mg PO Q4H PRN PRN Reason: PAIN LEVEL 7 - 10 Multivit/Folic Acid/Iron ( Vitamins (Sjr) -) 1 tab PO DAILY ON LICENSE OF [facility] Last Admin: 11/16/17 09:50 Dose: Not Given Senna/Docusate Sodium (Pericolace -) 2 tablet PO HS PRN PRN Reason: CONSTIPATION Simethicone (Mylicon -) 80 mg PO Q4H PRN PRN Reason: GAS - Objective Vital Signs: Vital Signs Temperature 98.4 F 11/16/17 06:00 Pulse Rate 65 11/16/17 06:00 Respiratory Rate 20 11/16/17 09:00 Blood Pressure 99/53 11/16/17 06:00 O2 Sat by Pulse Oximetry (%) 100 11/15/17 23:50 Constitutional: Yes: Well Nourished Cardiovascular: Yes: WNL Respiratory: Yes: WNL Gastrointestinal: Yes: WNL Labs: CBC, BMP 11/16/17 07:00 11/15/17 20:50 INR, PTT INR 1.02 (0.83-1.09) 11/15/17 20:00 Assessment/Plan No adverse effect from anesthetic, pain controlled, mild itching no further intervention from the dept of anesthesia
[2017-11-16] MEDS: ENOXAPARIN NA (PORCINE) 40 MG/0.4 ML DISP.SYRIN SQ SCH (14:17)
[2017-11-16] MEDS: ACETAMINOPHEN 325 MG TABLET (FP) PO PRN (17:24)
[2017-11-16] MEDS: IBUPROFEN 600 MG TABLET (FP) PO PRN (17:25)
[2017-11-16] MEDS: SIMETHICONE 80 MG TAB.CHEW (FP) PO PRN (17:26)
[2017-11-16] MEDS ORDERED: BISACODYL 10 MG SUPP.RECT RC PRN (23:14)
[2017-11-17] MEDS: FERROUS SO4 325 MG TABLET (FP) PO SCH ×2 (07:48→16:38)
[2017-11-17] MEDS: IBUPROFEN 600 MG TABLET (FP) PO PRN ×2 (08:44→19:19)
[2017-11-17] MEDS: SIMETHICONE 80 MG TAB.CHEW (FP) PO PRN ×2 (08:45→19:18)
[2017-11-17] MEDS: ACETAMINOPHEN 325 MG TABLET (FP) PO PRN ×2 (08:45→19:18)
[2017-11-17] MEDS: ENOXAPARIN NA (PORCINE) 40 MG/0.4 ML DISP.SYRIN SQ SCH (09:11)
[2017-11-17] MEDS: PRENATAL VITAMINS W/ FOLIC ACID TABLET (FP) PO SCH (09:11)
--- NOTE | 2017-11-17 12:20 | PN ---
Post Progress Note - Subjective Subjective: pain scale 4/10 voiding without difficulty Post Day: 2 Type of Delivery: Repeat C/S Vital Signs: Vital Signs Temperature 98.2 F 11/17/17 08:12 Pulse Rate 65 11/17/17 08:12 Respiratory Rate 18 11/17/17 08:12 Blood Pressure 115/62 11/17/17 08:12 O2 Sat by Pulse Oximetry (%) 100 11/15/17 23:50 Breast Exam: Yes: Soft. No: Engorged Uterus: Yes: Fundus Firm, Fundus below umbilicus, Non-tender Incision: Yes: Alder intact. No: Redness, Oozing Abdomen/GI: Yes: Abdomen soft, Passing flatus (bm done ), Tolerating PO (diet ) . No: Abdominal Distention, Tender Lochia: Yes: Rubra Lochia, amount: Moderate Extremities: Yes: Calves non-tender Perineum: Yes: Intact Activity: Ambulating - Labs Labs: CBC WBC 10.8 K/mm3 (4.0-10.0) H 11/16/17 07:00 RBC 4.33 M/mm3 (3.60-5.2) 11/16/17 07:00 Hgb 9.4 GM/dL (10.7-15.3) L 11/16/17 07:00 Hct 30.1 % (32.4-45.2) L 11/16/17 07:00 MCV 69.5 fl (80-96) L 11/16/17 07:00 MCH 21.7 pg (25.7-33.7) L 11/16/17 07:00 MCHC 31.3 g/dl (32.0-36.0) L 11/16/17 07:00 RDW 16.9 % (11.6-15.6) H 11/16/17 07:00 Plt Count 187 K/MM3 (134-434) 11/16/17 07:00 MPV 7.7 fl (7.5-11.1) 11/16/17 07:00 Absolute Neuts (auto) 8.8 K/mm3 (1.5-8.0) H 11/16/17 07:00 Neutrophils % 81.7 % (42.8-82.8) 11/16/17 07:00 Lymphocytes % 12.0 % (8-40) D 11/16/17 07:00 Monocytes % 5.6 % (3.8-10.2) 11/16/17 07:00 Eosinophils % 0.4 % (0-4.5) D 11/16/17 07:00 Basophils % 0.3 % (0-2.0) 11/16/17 07:00 Nucleated RBC % 0 % (0-0) 11/16/17 07:00 Hypochromia 2+ 11/15/17 20:00 Platelet Estimate Adequate 11/15/17 20:00 Platelet Comment 11/15/17 20:00 Anisocytosis 1+ 11/15/17 20:00 Microcytosis 1+ 11/15/17 20:00 Problem List - Problems (1) with 38 completed weeks gestation Code(s): Z3A.38 - 38 WEEKS GESTATION OF (2) Previous section Code(s): Z98.891 - HISTORY OF UTERINE SCAR FROM PREVIOUS SURGERY (3) Multiparity Code(s): Z64.1 - PROBLEMS RELATED TO MULTIPARITY (4) Positive GBS test Code(s): B95.1 - STREPTOCOCCUS, GROUP B, CAUSING DISEASES CLASSD ELSWHR (5) Anemia Code(s): D64.9 - ANEMIA, UNSPECIFIED Qualifiers: Anemia type: iron deficiency (6) delivery delivered Code(s): O82 - ENCOUNTER FOR DELIVERY WITHOUT INDICATION (7) Encounter for visit Code(s): Z39.2 - ENCOUNTER FOR ROUTINE FOLLOW-UP Assessment/Plan stable plan mo po care
[2017-11-18 07:21] LABS: BASO % 0.3 % (0-2.0); EOS % 4.9 % (0-4.5); HEMATOCRIT 28.7 % (32.4-45.2); HEMOGLOBIN 9.1 GM/dL (10.7-15.3); LYMPH % 19.6 % (8-40); MCHC 31.5 g/dl (32.0-36.0); MEAN CELL VOLUME 69.6 fl (80-96); MEAN PLT VOLUME 7.9 fl (7.5-11.1); MONO % 7.5 % (3.8-10.2); NEUT % 67.7 % (42.8-82.8); PLATELET COUNT 202 K/MM3 (134-434); RBC 4.13 M/mm3 (3.60-5.2); RDW 16.8 % (11.6-15.6); WHITE BLOOD COUNT 7.9 K/mm3 (4.0-10.0)
--- NOTE | 2017-11-18 08:19 | PN ---
Progress Note (short form) - Note Progress Note: pod 3, s/p repeat c/s, doing well, no c/o, ambulating Last Vital Signs Temp Pulse Resp BP Pulse Ox 98 F 60 18 104/58 100 11/18/17 08:10 11/18/17 08:10 11/18/17 08:10 11/18/17 08:10 11/15/17 23:50 Last Vital Signs Temp Pulse Resp BP Pulse Ox 98 F 60 18 104/58 100 11/18/17 08:10 11/18/17 08:10 11/18/17 08:10 11/18/17 08:10 11/15/17 23:50 CBC, BMP 11/18/17 06:00 11/15/17 20:50 abdo,men soft, no distension, no cva incision dry, clean no calf tenderness plan ambulate, observation iron vit
[2017-11-18] MEDS: PRENATAL VITAMINS W/ FOLIC ACID TABLET (FP) PO SCH (09:09)
[2017-11-18] MEDS: FERROUS SO4 325 MG TABLET (FP) PO SCH ×2 (09:09→16:58)
[2017-11-18] MEDS: ENOXAPARIN NA (PORCINE) 40 MG/0.4 ML DISP.SYRIN SQ SCH (09:09)
[2017-11-18] MEDS: SIMETHICONE 80 MG TAB.CHEW (FP) PO PRN ×3 (12:11→22:44)
[2017-11-18] MEDS: ACETAMINOPHEN 325 MG TABLET (FP) PO PRN ×3 (12:11→22:44)
[2017-11-18] MEDS: IBUPROFEN 600 MG TABLET (FP) PO PRN ×3 (12:12→22:44)
[2017-11-19] MEDS: FERROUS SO4 325 MG TABLET (FP) PO SCH (08:11)
--- NOTE | 2017-11-19 08:17 | DS ---
Physical Exam-AUTHORIZER Vital Signs: Vital Signs Temperature 98.0 F 11/18/17 22:00 Pulse Rate 56 L 11/18/17 22:00 Respiratory Rate 18 11/18/17 22:00 Blood Pressure 119/68 11/18/17 22:00 O2 Sat by Pulse Oximetry (%) 100 11/15/17 23:50 Constitutional: Yes: Well Nourished Eyes: Yes: WNL HENT: Yes: WNL Neck: Yes: WNL Cardiovascular: Yes: WNL Respiratory: Yes: WNL Gastrointestinal: Yes: WNL, Normal Bowel Sounds, Soft, Other (bm done). No: Distention Renal/: Yes: Other (voiding without difficulty) ....Post : Yes: Uterus firm, Uterus non-tender, Slight lochia rubra Breast(s): Yes: WNL (not engorged), Other (breast & bottle feeding) Musculoskeletal: Yes: WNL Extremities: Yes: WNL. No: Calf Tenderness Edema: LLE: Trace, RLE: Trace Wound/Incision: Yes: Clean/Dry, Well Approximated, Steri Strips, Open to air, Sheri Removed. No: Draining, Reddened, Bleeding Neurological: Yes: WNL, Alert, Oriented ...Motor Strength: WNL Psychiatric: Yes: WNL, Alert, Oriented Labs: CBC, BMP 11/18/17 06:00 11/15/17 20:50 Delivery - Delivery Section: Repeat, Low Flap Transverse (Bilateral total salpingectomy ( BTL )) Type of Anesthesia: Spinal Episiotomy/Laceration: None EBL (cc): 600 (reid output 100 ml serina color ) Delivery, Single - Stages of Labor Date 1st Stage Initiatied: 11/15/17 Time 1st Stage Initiated: 18:00 Date of Delivery: 11/15/17 Time of Delivery: 21:55 Time Placenta Delivered: 21:56 Placenta: Yes: Manual Removal, Uterine Exploration - Condition of Electrolysist/Digital Imaging Specialist Present: Yes Name: Jessica Clarke Gender: Female Weight: 7 lb 15 oz Position: Right, OT Total Hours ROM (Hrs/Mins): 3 min - 1 Minute Total Score: 9 5 Minutes Total Score: 9 - Feeding Plan Initial Plan: Elected not to breastfeed exclusively throughout hospitalization Remarks - Remarks Remarks: 26 yrs , 38.1 weeks by sono & 39.3 weeks by dates admitted in labor. GBS pos Indication 38.1 weeks , previous c/sction x3, requests voluntory sterlization Intraop course uneventful. 1 gm Iv ancef prior to incision was given post op course uneventful. discharge today Discharge Summary Current Active Problems Anemia (Acute) delivery delivered (Acute) Encounter for visit (Acute) Multiparity (Acute) Positive GBS test (Acute) with 38 completed weeks gestation (Acute) Previous section (Acute) Condition: Stable - Instructions Diet, Activity, Other Instructions: Post Instructions DIET: Continue good diet high in protein, calcium, and iron rich foods. Drink at least eight (8) glasses of water daily in addition to other fluids. ___ Regular diet MEDICATIONS: Continue vitamins and iron as previously directed. Motrin and Tylenol may be taken for minor discomfort. ACTIVITY: Mild to moderate exercise may be started in two (2) weeks. Take frequent rest periods. Resume normal activity after six (6) week check up. WOUND CARE OF OPERATIVE SITE: Continue use of perineal bottle until vaginal discharge stops. Keep area clean. Shower daily. Keep abdominal wound dry. Report any drainage or redness to physician. Tub baths, tampons and douches are not permitted for [address] Breast feeding & or Bottle feeding BREAST CARE: (For those that are not breast feeding): If engorgement occurs: Wear tight fitting bra. Take Tylenol or Motrin for pain. Apply cold packs (ice in bags to each breast ) FAMILY PLANNING: There are many control alternatives to pursue and they should be discussed at your first office visit. You may resume sexual activity after your six (6) week check up. (Remember, breast feeding is not a contraceptive) NEXT PHYSICIAN APPOINTMENT: Be certain to call for a one (1 ) week appointment, unless otherwise directed. Call Clinic or got to Emergency Dept if you have any of the following: Heavy vaginal bleeding Painful urination Leg pain Unusual odor noted to vaginal bleeding High fever Red streaking noted on breast Referrals: Junie Tohmas MD [Staff Physician] - Disposition: HOME - Home Medications Comprehensive Discharge Medication List: Ambulatory Orders Vitamins (Sjr) - 1 tab PO DAILY 06/03/16 Acetaminophen [Tylenol .Regular Strength -] 500 mg PO Q4H PRN #30 tablet Ferrous Sulfate [Feosol] 325 mg PO BIDWM #60 tab 11/19/17 Ibuprofen [Motrin -] 600 mg PO Q4H PRN #20 tablet 11/19/17 Vitamins (Sjr) - 1 tab PO DAILY #30 tablet 11/19/17 Sennosides/Docusate Sodium [Pericolace -] 2 tablet PO HS PRN #30 tablet
[2017-11-19] MEDS: IBUPROFEN 600 MG TABLET (FP) PO PRN (08:18)
[2017-11-19] MEDS: SIMETHICONE 80 MG TAB.CHEW (FP) PO PRN (08:18)
[2017-11-19] MEDS: PRENATAL VITAMINS W/ FOLIC ACID TABLET (FP) PO SCH (09:59)
[2017-11-19] MEDS: ENOXAPARIN NA (PORCINE) 40 MG/0.4 ML DISP.SYRIN SQ SCH (09:59)
[2017-11-19 10:59] VITALS: BP 117/62; PULSE 60; TEMP 98.1
--- NOTE | 2017-11-22 16:22 | PATH ---
Surgical Pathology Report Patient Name: CAR SINCLAIR [facility]. Rec. 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 Specimen(s) Received A: PLACENTA B: PORTION OF LEFT FALLOPIAN TUBE C: PORTION OF RIGHT FALLOPIAN TUBE Clinical History , 38.1 weeks, previous x3 in labor Final Diagnosis A. PLACENTA: THIRD TRIMESTER PLACENTA WITH FOCAL INFARCTION (2.3CM IN GREATEST DIMENSION). TRIVASCULAR CORD. MEMBRANES WITH NO DIAGNOSTIC ABNORMALITIES. B. LEFT PORTION OF FALLOPIAN TUBE: COMPLETE CROSS SECTION OF THE FALLOPIAN TUBE IDENTIFIED. PARATUBAL CYST PRESENT. C. RIGHT PORTION OF FALLOPIAN TUBE: COMPLETE CROSS SECTION OF THE FALLOPIAN TUBE IDENTIFIED. Electronically Signed Tyshawn Infante M.D. Gross Description A. The specimen is received fresh labeled placenta and is a 601 gram, 15.0 x 15.0 x 3.7 cm. placenta with attached membranes and umbilical cord. The attached membranes are pinto, translucent with focal opacities and insert marginally. The umbilical cord measures 16 cm. in length and averages 1.1 cm. in diameter. The cord inserts eccentrically, 2.5 cm. to the nearest margin. No true knots or strictures are identified. Cut surface of the umbilical cord reveals 3 vessels. The surface is hernandez blue with moderate fibrin deposition and appropriate caliber vessels. The maternal surface is red-brown and intact. Sectioning reveals a 2.3 cm in greatest dimension hemorrhagic intraparenchymal lesion. The remaining placental parenchyma is red-brown and spongy. Pan Dumper sections are submitted in 4 cassettes as follows: 1-membrane roll and umbilical cord; 2-lesion; 3-4- full thickness sections of placenta. B. Received in formalin labeled "portion of left fallopian tube," is a 6.5 cm in length fimbriated portion of fallopian tube. The outer surface is pinto-minor and smooth with a 0.9 cm in greatest dimension paratubal cyst attached to the fimbria. Sectioning reveals an unremarkable fallopian tube lumen. Pan Dumper sections are submitted in 2 cassettes as follows: 1-fimbria and paratubal cyst; 2-cross sections of fallopian tube. C. Received in formalin labeled "portion of right fallopian tube," is a 9 cm in length fimbriated portion of fallopian tube. The outer surface is pinto hernandez and smooth. Sectioning reveals an unremarkable lumen. Pan Dumper sections are submitted in 2 cassettes as follows: 1-fimbria; 2-cross sections of fallopian tube. 11/18/2017 [facility]11/18/2017
== END 2017-11-19 11:02 | disposition home or self-care (01) | DRG 540 ==
LOC: JDEL 18:45 → JLDR 19:20 → J3W 11-16 00:15
PROVIDERS: ADMIT Obstetrics & Gynecology; ATTEND Obstetrics & Gynecology
PROC: 10D00Z1 Extraction of Products of Conception, Low, Open Approach (ICD-10-PCS; principal; 2017-11-15)
PROC: 0UB70ZZ Excision of Bilateral Fallopian Tubes, Open Approach (ICD-10-PCS; 2017-11-15)
DX: O34.219 Maternal care for unspecified type scar from previous cesarean delivery (principal); O99.824 Streptococcus B carrier state complicating childbirth; O99.02 Anemia complicating childbirth; Z3A.38 38 weeks gestation of pregnancy; Z37.0 Single live birth; Z30.2 Encounter for sterilization
CPT/HCPCS: 36415; 36600; 80048; 82803; 85025; 85610; 85730; 86593; 86850; 86900; 86901; 88302-TC; 88307-TC

== ENCOUNTER 2021-07-12 23:56 | Emergency (ER) | payer OTHER ==
[2021-07-13 00:07] VITALS: TEMP 98.1; BMI 25.7
[2021-07-13] MEDS ORDERED: FAMOTIDINE 20 MG/50 ML IVPB 20 MG/50 ML MG IVPB ONE (00:11)
[2021-07-13] MEDS ORDERED: FAMOTIDINE 10 MG/ML VIAL IVPB ONE (00:11)
[2021-07-13] MEDS ORDERED: methylPREDNISolone NA SUCC 125 MG/2 ML VIAL ONE (00:11)
[2021-07-13] MEDS ORDERED: methylPREDNISolone NA SUCC 125 MG/2 ML VIAL IVPUSH ONE (00:11)
[2021-07-13 03:59] VITALS: BP 112/58; PULSE 61
== END 2021-07-13 04:00 | disposition home or self-care (01) ==
LOC: JER 23:56
PROC: 3E033GC Introduction of Other Therapeutic Substance into Peripheral Vein, Percutaneous Approach (ICD-10-PCS; principal; 2021-07-12)
DX: T78.40XA Allergy, unspecified, initial encounter (principal)
CPT/HCPCS: 99284-25

== ENCOUNTER 2023-01-15 12:36 | Emergency (ER) | payer OTHER ==
[2023-01-15 12:42] VITALS: BP 115/72; PULSE 77; RESP 20; TEMP 98.9; BMI 26.5
== END 2023-01-15 15:07 | disposition home or self-care (01) ==
LOC: JERFT 12:36
PROC: 3E023GC Introduction of Other Therapeutic Substance into Muscle, Percutaneous Approach (ICD-10-PCS; principal; 2023-01-15)
DX: L23.1 Allergic contact dermatitis due to adhesives (principal); R21 Rash and other nonspecific skin eruption
CPT/HCPCS: 99284-25